=== PATIENT | male | born 1985 | race Hispanic/Latino ===

== ENCOUNTER 2021-04-19 11:18 | Emergency (ER) | payer OTHER, SELFPAY ==
--- NOTE | 2021-04-19 13:13 | ER ---
Nurse's Notes [facility] Name: Stanford Xiao Jr Age: 35 yrs Sex: Male : 1985 Arrival Date: 04/19/2021 Time: 11:20 Bed 12 Private MD: Diagnosis: Panic disorder [episodic paroxysmal anxiety] without agoraphobia Presentation: 04/19 12:52 Chief complaint: Patient states: In [facility] for 5 days and had a panic attack, symptoms jl7 resolved, denies chest pain, denies shortness of breath. Reports needs a refill on albuterol inhaler. Coronavirus screen: Vaccine status: Patient reports being unvaccinated. Ebola Screen: No symptoms or risks identified at this time. Initial Sepsis Screen: Does the patient meet any 2 criteria? No. Patient's initial sepsis screen is negative. Does the patient have a suspected source of infection? No. Patient's initial sepsis screen is negative. Risk Assessment: Do you want to hurt yourself or someone else? Patient reports no desire to harm self or others. Onset of symptoms was April 19, 2021. Care prior to arrival: IV initiated. 18 GA, in the left antecubital area, Glucose check: 113. 12:52 Method Of Arrival: EMS: [facility] 7 12:52 Acuity: JULIOCESAR 3 jl7 Triage Assessment: 12:54 General: Appears in no apparent distress. uncomfortable, Behavior is cooperative, jl7 anxious. Pain: Denies pain. Neuro: Level of Consciousness is awake, alert, obeys commands, Oriented to person, place, time, situation. Cardiovascular: Denies chest pain, Patient's skin is warm and dry. Respiratory: Airway is patent Respiratory effort is even, unlabored, Respiratory pattern is regular, symmetrical. Derm: Skin is pink, warm \T\ dry. Historical: - Allergies: 12:54 No Known Allergies; jl7 - PMHx: 12:54 Anxiety; Asthma; Hypertension; jl7 - Immunization history:: Adult Immunizations up to date, Client reports having NOT received the Covid vaccine. - Social history:: Smoking status: Patient denies any tobacco usage or history of. Screenin:49 Abuse screen: Denies threats or abuse. Nutritional screening: No deficits noted. ap3 Tuberculosis screening: No symptoms or risk factors identified. Fall Risk None identified. Assessment: 13:50 General: Appears in no apparent distress. Behavior is anxious. Pain: Denies pain. Pain ap3 does not radiate. Pain began N/A. Neuro: Level of Consciousness is awake, alert, obeys commands, Oriented to person, place, time, situation, Appropriate for age Manager Pathology are equal bilaterally Moves all extremities. Gait is steady, Speech is normal. Cardiovascular: Denies chest pain. Respiratory: Airway is patent Respiratory effort is even, unlabored, Respiratory pattern is regular, symmetrical. Vital Signs: 12:52 BP 143 / 87; Pulse 110; Resp 17; Temp 99.1; Pulse Ox 100% ; Weight 113.4 kg; Height 6 jl7 ft. 1 in. (185.42 cm); Pain 0/10; 12:52 Body Mass Index 32.98 (113.40 kg, 185.42 cm) jl7 ED Course: 11:20 Patient arrived in ED. as 12:54 Triage completed. jl7 12:54 Arm band placed on right wrist. jl7 12:57 Josiah Chew PA is PHCP. jr8 12:57 Misbah Green MD is Attending Physician. jr8 13:05 Xochitl Quiros, BRETT is Primary Nurse. ap3 13:50 Patient has correct armband on for positive identification. Call light in reach. Pulse ap3 ox on. NIBP on. Door closed. Noise minimized. 13:50 No provider procedures requiring assistance completed. IV discontinued, intact, ap3 bleeding controlled, No redness/swelling at site. Pressure dressing applied. Patient maintains SpO2 saturation greater than 95% on room air. Administered Medications: No medications were administered Outcome: 13:13 Discharge ordered by . jr8 13:50 Discharged to home ambulatory. ap3 13:50 Condition: good 13:50 Discharge instructions given to patient, Instructed on discharge instructions, follow up and referral plans. medication usage, Demonstrated understanding of instructions, follow-up care, medications, Prescriptions given X 3. 13:51 Patient left the ED. ap3 Signatures: Tayla Rodas Josh, PA PA jr8 Marine Samuels RN RN jl7 Xochitl Quiros RN RN ap3
--- NOTE | 2021-04-19 13:13 | EDPHYS ---
Physician Documentation [facility] Name: Stanford Xiao Jr Age: 35 yrs Sex: Male : 1985 Arrival Date: 04/19/2021 Time: 11:20 Bed 12 Private MD: ED Physician Misbah Green HPI: 04/19 13:15 This 35 yrs old Male presents to ER via EMS with complaints of Chest Pain, jr8 Breathing Difficulty. 13:15 Onset: The symptoms/episode began/occurred acutely, today. Associated signs and jr8 symptoms: The patient has no apparent associated signs or symptoms. The patient has experienced similar episodes in the past, a few times. The patient has not recently seen a physician. Patient stated that he was having significant anxiety attack today while in residential. Was being released after being in there for several days. Has been not receiving his medications as he normally does when he is out of gel. Patient stated that he has arrived here is feeling much better and now asymptomatic.. Historical: - Allergies: 12:54 No Known Allergies; jl7 - PMHx: 12:54 Anxiety; Asthma; Hypertension; jl7 - Immunization history:: Adult Immunizations up to date, Client reports having NOT received the Covid vaccine. - Social history:: Smoking status: Patient denies any tobacco usage or history of. ROS: 13:15 Eyes: Negative for injury, pain, redness, and discharge, ENT: Negative for injury, jr8 pain, and discharge, Neck: Negative for injury, pain, and swelling, Abdomen/GI: Negative for abdominal pain, nausea, vomiting, diarrhea, and constipation, Back: Negative for injury and pain, MS/Extremity: Negative for injury and deformity, Skin: Negative for injury, rash, and discoloration. 13:15 Cardiovascular: Positive for chest pain. 13:15 Respiratory: Positive for shortness of breath. 13:15 Psych: Positive for anxiety. Exam: 13:15 Constitutional: This is a well developed, well nourished patient who is awake, alert, jr8 and in no acute distress. Cardiovascular: Regular rate and rhythm with a normal S1 and S2. No gallops, murmurs, or rubs. Normal PMI, no JVD. No pulse deficits. Respiratory: Lungs have equal breath sounds bilaterally, clear to auscultation and percussion. No rales, rhonchi or wheezes noted. No increased work of breathing, no retractions or nasal flaring. Abdomen/GI: Soft, non-tender, with normal bowel sounds. No distension or tympany. No guarding or rebound. No evidence of tenderness throughout. Back: No spinal tenderness. No costovertebral tenderness. Full range of motion. Skin: Warm, dry with normal turgor. Normal color with no rashes, no lesions, and no evidence of cellulitis. MS/ Extremity: Pulses equal, no cyanosis. Neurovascular intact. Full, normal range of motion. Neuro: Awake and alert, GCS 15, oriented to person, place, time, and situation. Cranial nerves II-XII grossly intact. Motor strength 5/5 in all extremities. Sensory grossly intact. Cerebellar exam normal. Normal gait. Vital Signs: 12:52 BP 143 / 87; Pulse 110; Resp 17; Temp 99.1; Pulse Ox 100% ; Weight 113.4 kg; Height 6 jl7 ft. 1 in. (185.42 cm); Pain 0/10; 12:52 Body Mass Index 32.98 (113.40 kg, 185.42 cm) jl7 MDM: 12:57 Patient medically screened. jr8 13:10 Data reviewed: vital signs, nurses notes, and as a result, I will discharge patient. jr8 Data interpreted: Pulse oximetry: on room air is 100 %. Interpretation: normal. Counseling: I had a detailed discussion with the patient and/or guardian regarding: the historical points, exam findings, and any diagnostic results supporting the discharge/admit diagnosis, the need for outpatient follow up, a family practitioner, to return to the emergency department if symptoms worsen or persist or if there are any questions or concerns that arise at home. ED course: Patient has complete resolution of all symptoms. Most likely was his anxiety attack. Had been incarcerated for the last several days with dysregulation of his medications. Now that he has been released he is feeling much better.. Administered Medications: No medications were administered Disposition: 04/20 09:19 Co-signature as Attending Physician, Misbah Green MD I agree with the assessment and dominik plan of care. Disposition Summary: 04/19/21 13:13 Discharge Ordered Location: Home [facility] Problem: new jr8 Symptoms: have improved jr8 Condition: Stable jr8 Diagnosis - Panic disorder [episodic paroxysmal anxiety] without agoraphobia jr8 Followup: jr8 - With: Private Physician - When: 2 - 3 days - Reason: Recheck today's complaints, Continuance of care, Re-evaluation by your physician Discharge Instructions: - Discharge Summary Sheet jr8 - Panic Attack jr8 Forms: - Medication Reconciliation Form jr8 - Thank You Letter jr8 - Antibiotic Education jr8 - Prescription Opioid Use jr8 Prescriptions: - albuterol sulfate 90 mcg/actuation Inhalation HFA aerosol inhaler - inhale 2 puff by INHALATION route every 4-6 hours; 1 Inhaler; Refills: 0, jr8 Product Selection Permitted - Albuterol Sulfate 2.5 mg /3 mL (0.083 %) Inhalation Solution for Nebulization - inhale 1 unit by NEBULIZATION route every 8 hours As needed; 1 box; Refills: 0, jr8 Product Selection Permitted Signatures: Misbah Green MD MD cha Roszak, Josh, PA PA jr8 Marine Samuels RN RN jl7
[2021-04-19 13:55] VITALS: BP 143/87; TEMP 99.1; O2SAT 100
== END 2021-04-19 13:51 | disposition home or self-care (01) ==
LOC: ER 11:18
DX: F41.0 Panic disorder [episodic paroxysmal anxiety] (principal); I10 Essential (primary) hypertension
CPT/HCPCS: 99284